=== PATIENT | male | born 1955 | race Caucasian/White ===

== ENCOUNTER 2016-10-29 08:00 | Day surgery (SDC) | payer BC ==
--- NOTE | ~2016-10-29 | OP ---
Record Of Operation [facility] [address] [place]. [address] NAME: MARKO SALAS : 57 STATUS : REG [facility]#: [id number] AGE: 61 ADM/REG DATE : 10/29/16 MR#: [id number] REPORT SERV DATE: 10/29/16 DICTATED BY: ED RAMIREZ DATE: 10/29/16 REPORT STATUS : Draft TRANSCRIBED BY: MODL DATE: 10/29/16 DATE OF PROCEDURE: 10/29/2016 PREOPERATIVE DIAGNOSIS: Neuropathy. POSTOPERATIVE DIAGNOSIS: Neuropathy. OPERATION PERFORMED: Left sural nerve biopsy. SURGEON: Ed Ramirez M.D. ANESTHESIA: MAC plus local. ESTIMATED BLOOD LOSS: Less than 10 mL. IV FLUIDS: Adequate. INDICATIONS FOR PROCEDURE: Mr. Salas is a 61-year-old who has had progressive leg pain and muscle weakness. Then brought to the operating room today for left sural nerve biopsy. DESCRIPTION OF OPERATION: After appropriate sedation, the patient was prepped and draped in proper sterile fashion. The skin and subcutaneous tissues posterior to the left lateral malleolus were infiltrated with local anesthesia. An incision was made. The left saphenous vein was visualized. It was elevated. Medial to this, the sural nerve was identified. This was dissected out, and a 4 cm segment was located. The sural nerve was then dissected out and transected in between hemostats. The nerve was then infiltrated with Marcaine proximally and distally. It was then tied off using 3-0 Vicryl sutures. Hemostasis was obtained. The skin was closed using interrupted 3-0 Vicryl sutures and then interrupted 3-0 nylons. The specimen was passed off directly to pathology for evaluation. ANA/PANDA Ed Ramirez M.D. / [id number] CC: Salvador Silva M.D. Matthew Kodsi, M.D., PhD.
[~2016-10-29 08:00] MED LIST: ASAB PO; AVINZA30 PO; CRESTOR40 MG PO; CYMBALTA60 PO; FLEX PO; GRALISE600 MG PO; HORIZANT600 MG PO; IMDUR30 PO; KLOR-CON 1010 MEQ PO; L40 PO; LIPITOR80 MG PO; LOP25 PO; LYRICA150 MG PO; NITROSTAT0.4 MG SL; PERCOCET 10/3251 TAB PO; PLAVIX PO; PREV30 PO; PRILOSEC40 MG PO; PRIN2.5 PO; SOMATAB PO; SUCR PO; TEG200 PO; TESTOST CYP200 MG/ML IM; VITAMIN D2 PO
[2016-10-29 08:39] LABS: HEMATOCRIT 46.8 % (40.0-51.0); HEMOGLOBIN 15.8 g/dL (13.6-17.8)
[2016-10-29 08:50] LABS: BUN (BLOOD UREA NITROGEN) 17 MG/DL (6-23); CALCIUM, SERUM 8.5 MG/DL (8.5-10.4); CHLORIDE, SERUM 105 MMOL/L (96-112); CO2 (CARBON DIOXIDE) 29 MMOL/L (24-34); CREATININE 1.02 MG/DL (0.70-1.30); GFR AFRICAN AMERICAN 92 ML/MIN (>=60); GFR NON AFRICAN AMERICAN 80 ML/MIN (>=60); GLUCOSE, SERUM 106 MG/DL (60-99); POTASSIUM, SERUM 4.9 MMOL/L (3.5-5.3); SODIUM, SERUM 141 MMOL/L (135-148)
== END 2016-10-29 16:55 | disposition home or self-care (01) ==
LOC: SDC 08:00
PROVIDERS: Specialist
PROC: 01B Peripheral Nervous System, Excision (ICD-10-PCS; principal; 2016-10-29 09:15)
DX: G57.82 Other specified mononeuropathies of left lower limb (principal); G57.91 Unspecified mononeuropathy of right lower limb; I10 Essential (primary) hypertension; I25.10 Atherosclerotic heart disease of native coronary artery without angina pectoris; I25.2 Old myocardial infarction; N28.89 Other specified disorders of kidney and ureter; E78.00 Pure hypercholesterolemia, unspecified; K21.9 Gastro-esophageal reflux disease without esophagitis; Z95.5 Presence of coronary angioplasty implant and graft; Z88.5 Allergy status to narcotic agent; Z79.82 Long term (current) use of aspirin; Z79.02 Long term (current) use of antithrombotics/antiplatelets; Z79.899 Other long term (current) drug therapy; Z90.89 Acquired absence of other organs
CPT/HCPCS: 80048; 85014; 85018; 88305; 88313; 93005; J0690; J2250; J2405; J2710; J3010